=== PATIENT | female | born 1990 | race Caucasian/White ===

== ENCOUNTER 2016-10-20 08:13 | Emergency (ER) | payer BC, OTHER ==
[~2016-10-20] VITALS: Ht 165.1 cm; Wt 82.0 kg
[~2016-10-20 08:13] MED LIST: ADDE20 PO; OXYC10TA8 PO; PROZ40CA PO; REGL10TA5 PO; SERO25TA PO
[2016-10-20 08:25] VITALS: BP 145/97; PULSE 118; RESP 20; TEMP 97.6; O2SAT 99
[2016-10-20] MEDS ORDERED: REGL10TA5 PO (08:34)
[2016-10-20] MEDS ORDERED: VYVA50CA3 PO (08:34)
[2016-10-20] MEDS ORDERED: OXYC-395 PO (08:34)
[2016-10-20] MEDS ORDERED: LORazepam 1 MG TAB PO ONE (09:00)
[2016-10-20 09:10] LABS: AUTOMATED NEUTROPHIL # 7.9 TH/MM3 (1.8-7.7); BASOPHIL # 0.1 TH/MM3 (0-0.2); BASOPHIL % 0.6 % (0.0-2.0); EOSINOPHIL # 0.2 TH/MM3 (0-0.4); EOSINOPHIL % 2.2 % (0.0-4.0); HEMATOCRIT 40.9 % (35.0-46.0); HEMO FLAGS DIFF FINAL; LYMPHOCYTE # 2.1 TH/MM3 (1.0-4.8); MEAN CELL VOLUME 86.7 FL (80.0-100.0); MEAN CORPUSCULAR HEMOGLOBIN 30.3 PG (27.0-34.0); MEAN CORPUSCULAR HGB CONC 34.9 % (32.0-36.0); MONO % 5.4 % (0.0-8.0); NEUT % 72.8 % (16.0-70.0); PLATELET COUNT 175 TH/MM3 (150-450); RED BLOOD COUNT 4.72 MIL/MM3 (4.00-5.30); RED CELL DISTRIBUTION WIDTH 13.2 % (11.6-17.2); WHITE BLOOD COUNT 10.9 TH/MM3 (4.0-11.0)
--- NOTE | 2016-10-20 09:16 | PD ---
HPI Chief Complaint: Depression Time Seen by Provider: 08:43 Travel History International Travel<30 days: No Contact w/Intl Traveler<30days: No Traveled to known affect area: No History of Present Illness HPI Is a 26-year-old woman presents to the emergency department complaining of increasing anxiety and depression symptoms. She is a history of anxiety. She had depression since her delivery in October. She was previously hospitalized in December. She states he been adjusting her medications due to insurance reasons she doesn't feel like they're working. She had increasing depression and anxiety symptoms over the weekend like to see psychiatry. Denies suicidality at this time. History Past Medical History Narrative Medical Anxiety/depression Asthma TMJ Influenza Vaccination: Yes : 3 Para: 2 Dilation and Curettage (D&C): Yes Social History Alcohol Use: No Tobacco Use: Yes Allergies-Medications (Allergen,Severity, Reaction): Coded Allergies: Ceclor (Verified Allergy, Severe, PATIENT DID RECEIVE ANCEF 05/26- NO REACTION CURRENTLY, 10/20/16) Penicillin (Verified Allergy, Severe, Rash, 10/20/16) Hydrocodone (Verified Allergy, Intermediate, Hives, 10/20/16) Parsley (Verified Allergy, Intermediate, hives, 10/20/16) Topamax (Verified Adverse Reaction, Severe, 10/20/16) anxiety and crazy Reported Meds & Prescriptions Reported Meds & Active Scripts Active Seroquel (Quetiapine Fumarate) 25 Mg Tab 25 Mg PO TID Prozac (Fluoxetine HCl) 40 Mg Cap 40 Mg PO DAILY Reported Reglan (Metoclopramide HCl) 10 Mg Tab 10 Mg PO QID PRN Oxycodone (Oxycodone HCl) 10 Mg Tab 10 Mg PO Q6H PRN Vyvanse (Lisdexamfetamine Dimesylate) 50 Mg Cap 50 Mg PO DAILY Review of Systems Except as stated in HPI: all other systems reviewed are Neg Physical Exam Narrative GENERAL: 26-year-old woman, tearful, anxious. SKIN: Warm and dry. HEAD: Atraumatic. Normocephalic. CARDIOVASCULAR: Regular rate and rhythm. No murmur appreciated. RESPIRATORY: No accessory muscle use. Clear to auscultation. Breath sounds equal bilaterally. GASTROINTESTINAL: Abdomen soft, non-tender, nondistended. Hepatic and splenic margins not palpable. MUSCULOSKELETAL: No obvious deformities. No edema. NEUROLOGICAL: Awake and alert. No obvious cranial nerve deficits. Motor grossly within normal limits. Normal speech. Psychiatric: Anxious, tearful, little bit jittery. Denies suicidality. Data Data Last Documented VS Vital Signs Date Time Temp Pulse Resp B/P Pulse Ox O2 Delivery O2 Flow Rate FiO2 10/20/16 08:25 97.6 118 20 145/97 99 Orders Complete Blood Count With Diff (10/20/16 08:52) Comprehensive Metabolic Panel (10/20/16 08:52) Drug Screen, Random Urine (10/20/16 08:52) Beta Hcg (Quant/Titer) (10/20/16 08:52) Psych Screen (10/20/16 08:52) Lorazepam (Ativan) (10/20/16 09:00) Labs Laboratory Tests Test 10/20/16 09:00 White Blood Count 10.9 TH/MM3 Red Blood Count 4.72 MIL/MM3 Hemoglobin 14.3 GM/DL Hematocrit 40.9 % Mean Corpuscular Volume 86.7 FL Mean Corpuscular Hemoglobin 30.3 PG Mean Corpuscular Hemoglobin 34.9 % Concent Red Cell Distribution Width 13.2 % Platelet Count 175 TH/MM3 Mean Platelet Volume 9.7 FL Neutrophils (%) (Auto) 72.8 % Lymphocytes (%) (Auto) 19.0 % Monocytes (%) (Auto) 5.4 % Eosinophils (%) (Auto) 2.2 % Basophils (%) (Auto) 0.6 % Neutrophils # (Auto) 7.9 TH/MM3 Lymphocytes # (Auto) 2.1 TH/MM3 Monocytes # (Auto) 0.6 TH/MM3 Eosinophils # (Auto) 0.2 TH/MM3 Basophils # (Auto) 0.1 TH/MM3 CBC Comment DIFF FINAL Differential Comment MDM Medical Decision Making Medical Screen Exam Complete: Yes Emergency Medical Condition: Yes Differential Diagnosis Anxiety, depression, adverse effect of medication, Narrative Course Medical decision making 26-year-old woman presents emergent department increased anxiety and depression symptoms. No somatic complaints. Patient's medically clear for psychiatric evaluation. Toribio Sal MD Oct 20, 2016 09:16
[2016-10-20 09:21] LABS: AMPHETAMINE, URINE POS (NEG); BARBITURATES, URINE NEG (NEG); COCAINE, URINE NEG (NEG)
[2016-10-20 09:26] LABS: ANION GAP 6 MEQ/L (5-15); AST (GOT) 12 U/L (15-37); BICARBONATE 27.7 MEQ/L (21.0-32.0); BLOOD UREA NITROGEN 11 MG/DL (7-18); CHLORIDE 103 MEQ/L (98-107); GLOMERULAR FILTRATION RATE 110 ML/MIN (>89); SODIUM (NA) 137 MEQ/L (136-145)
[2016-10-20 09:31] LABS: ALKALINE PHOSPHATASE 87 U/L (45-117); ALT (GPT) 27 U/L (10-53); BETA HCG QUANT LESS THAN 1 MIU/ML (0-5); TOTAL BILIRUBIN ADULT 0.6 MG/DL (0.2-1.0)
[2016-10-20 14:41] VITALS: BP 126/84; PULSE 106; RESP 18; TEMP 99; O2SAT 97
[2016-10-20] MEDS ORDERED: ARIPiprazole 10 MG TAB PO STA (15:14)
--- NOTE | 2016-10-20 15:25 | PD.CONS ---
Provisional Diagnosis Admission Date [place] I. Major depressive disorder recurrent severe F 33.1 History of Present Illness Service Psychiatry Consult Requested By EDMD Reason for Consult Depression Primary Care Physician Non-Staff HPI Patient is a 26-year-old white female well-known to me from her prior inpatient psychiatric hospitalization a number of months ago and from follow-up care in the [facility] outpatient [facility]. The outpatient clinic will be closing the end of this week. Patient was seen last week with her and her father. After showing some decompensation with her depression secondary to discontinuing Abilify due to financial reasons the trial on Seroquel. That shown Seroquel is not helped. At the present time patient continues labile depressed and tearful. She is mildly histrionic with this. Though she does attempt to go to work here at [facility]. She denies suicidality homicidality voices or visions alcohol or drug use. She states relation with the continues stable though he does not have much insight into the mental health issues that she is suffering with. We did discuss medications patient states she is now a compliant with [facility] as of October 19. She is willing to go back on the Abilify. And follow-up with psychiatric services through [facility] outpatient perhaps Dr. Cortez Gillette. For now will give patient 10 mg Abilify here in the ED and I'll write her prescription for Abilify 10 mg #30 one by mouth every morning with no refills patient is satisfied with this is willing to go home with a prescription Review of Systems Except as stated in HPI: all other systems reviewed are Neg Past Family Social History Coded Allergies: Ceclor (Verified Allergy, Severe, PATIENT DID RECEIVE ANCEF 05/26- NO REACTION CURRENTLY, 10/20/16) Penicillin (Verified Allergy, Severe, Rash, 10/20/16) Hydrocodone (Verified Allergy, Intermediate, Hives, 10/20/16) Parsley (Verified Allergy, Intermediate, hives, 10/20/16) Topamax (Verified Adverse Reaction, Severe, 10/20/16) anxiety and crazy Past Medical History Patient 2 para 2 Active Scripts Quetiapine (Seroquel)25 Mg Tab25 Mg PO TID #90 TAB Ref 0 Prov:Will Araiza MD 10/14/16 Fluoxetine (Prozac)40 Mg Cap40 Mg PO DAILY #30 CAP Ref 2 Prov:Will Araiza MD 09/30/16 Reported Medications Metoclopramide (Reglan)10 Mg Tab10 Mg PO QID PRN (nausea) #0 TAB Ref 0 10/20/16 Oxycodone 10 Mg Tab10 Mg PO Q6H PRN (PAIN) Ref 0 10/20/16 Lisdexamfetamine (Vyvanse)50 Mg Cap50 Mg PO DAILY #0 CAP Ref 0 10/20/16 Discontinued Scripts Amphetamine-Dextroamphetamine (Adderall)20 Mg Tab20 Mg PO BID #60 TAB Ref 0 fill after 10/27/16 Prov:Will Araiza MD 09/30/16 Amphetamine-Dextroamphetamine (Adderall)20 Mg Tab20 Mg PO BID #60 TAB Ref 0 fill after 09/29/16 Prov:Will Araiza MD 09/02/16 Aripiprazole (Abilify 10 mg)10 Mg Tab10 Mg PO DAILY #30 TAB Ref 1 Prov:Will Araiza MD 07/08/16 Family History Patient's father history of bipolar disorder Social History Patient lives with and 2 small children Patient's Strengths (min. 2) Patient verbal interval and axis health care is cooperative Physical Exam Is medically cleared in ED Vital Signs Vital Signs Date Time Temp Pulse Resp B/P Pulse Ox O2 Delivery O2 Flow Rate FiO2 10/20/16 14:41 99.0 106 18 126/84 97 Room Air Mental Status Examination Alert oriented full figured white female appears stated age quite tearful labile with intense eye contact Appearance Clean and neat Speech: Unremarkable, Hesitant (mildly) Orientation: x3 Memory: Unremarkable Thought Process: Logical Thought Content: Unremarkable Language Persian Fund of Knowledge Good Hallucination Type: None Attention and Concentration: Good Suicidal Ideation: No Previous Suicide Attempts: Yes Homicidal Ideation: No Previous Homicide Attempts: No Insight: Good Judgement: WNL Affect: Other (increased range and intensity) Mood: Sad (and dysphoric) Motor Activity: Normal gait Assessment & Plan Problem List: (1) Depression, major, recurrent, moderate ICD Code: F33.1 Assessment & Plan Estimated LOS: days patient able to be discharged okay by psych for discharge follow-up outpatient with [facility] outpatient psychiatric department Rx 1 month Abilify 10 mg daily. Patient given one 10 mg pill while here Discharge Planning See above Request HC Surrog/Guard Advoc?: No Will Araiza MD Oct 20, 2016 15:25
[2016-10-20] MEDS ORDERED: ARIP1TAB5 PO (15:26)
== END 2016-10-20 17:13 | disposition home or self-care (01) ==
LOC: NEPE 08:13 → NEPJ 17:13
DX: F33.1 Major depressive disorder, recurrent, moderate (principal); F41.9 Anxiety disorder, unspecified; J45.909 Unspecified asthma, uncomplicated
CPT/HCPCS: 80053; 80307; 84702; 85025; 99284